=== PATIENT | male | born 1990 | race Caucasian/White ===

== ENCOUNTER 2017-12-19 17:11 | Emergency (ER) | payer SELFPAY ==
[~2017-12-19] VITALS: Ht 180.3 cm; Wt 93.0 kg
[2017-12-19 17:11] VITALS: BP_SYST 130
--- NOTE | 2017-12-19 17:11 | NUR ---
Pt arrives via crutches and placed to ER hallway bed. Redness and swelling generalized to anterior LLE with area of dark discoloration to mid lugo, 2-3+ pitting edema. Pt states that while driving, he felt a sharp pain to mid lugo then noticed swelling to that area. Pt went to Urgent Care in [place] and was Rx Bactrim DS PO BID. Last dose this am at 0900. Pt states he was concerned because he noticed an "indentation" to lugo when he pushed with his finger, so he came to ER.
--- NOTE | 2017-12-19 17:20 | NUR ---
Dr. Whitney at bedside to assess pt.
[2017-12-19 17:27] LABS: BASOPHILS # (AUTO) 0.1 K/uL (0.0-0.2); BASOPHILS % (AUTO) 0.5 % (0.0-2.0); EOSINOPHILS # (AUTO) 0.5 K/uL (0.0-0.4); EOSINOPHILS % (AUTO) 3.8 % (0.0-4.0); HEMOGLOBIN 14.3 g/dL (14.0-18.0); LYMPHOCYTES # (AUTO) 1.8 K/uL (1.0-5.5); LYMPHOCYTES % (AUTO) 14.6 % (20.5-51.5); MEAN CORPUSCULAR HEMOGLOBIN 29 pg (27-31); MEAN CORPUSCULAR HGB CONC 33 % (32-36); MEAN CORPUSCULAR VOLUME 89 fL (79.0-98.0); MONOCYTES # (AUTO) 1.1 K/uL (0.0-1.0); MONOCYTES % (AUTO) 8.9 % (1.7-9.3); NEUTROPHILS # (AUTO) 8.8 K/uL (1.8-7.7); NEUTROPHILS % (AUTO) 72.2 % (40.0-70.0); PLATELET COUNT (AUTO) 251 K/uL (130-430); RED BLOOD CELL COUNT(AUTO) 4.95 MIL/uL (4.2-6.2); RED CELL DISTRIBUTION WIDTH 12.3 % (9.0-15.0); WHITE BLOOD COUNT (AUTO) 12.3 K/uL (4.8-10.8)
--- NOTE | 2017-12-19 17:44 | NUR ---
x-ray at bedside.
[2017-12-19 17:46] LABS: CALCIUM 10.2 mg/dL (8.4-11.0); CREATININE 0.93 mg/dL (0.55-1.30)
[2017-12-19 17:50] LABS: ALBUMIN 3.7 g/dL (3.4-4.8); TOTAL BILIRUBIN 0.3 mg/dL (0.0-1.0)
[2017-12-19 17:59] LABS: PROTHROMBIN TIME 9.7 SECS (9.5-12.5)
[2017-12-19] MEDS: CLINDAMYCIN HCL 150 MG CAPSULE PO ONE (18:14)
--- NOTE | 2017-12-19 18:29 | NUR ---
Pt laying on bed, no needs verbalized. Pt states that he doesn't need any medication for pain.
--- NOTE | 2017-12-19 18:53 | NUR ---
Pt to [facility] via [facility].
--- NOTE | 2017-12-19 19:08 | NUR ---
Pt report given to ENMANUEL Wadsworth.
[2017-12-19 19:20] VITALS: BP_SYST 130
--- NOTE | 2017-12-19 19:20 | NUR ---
Patient given written and verbal discharge instructions and verbalizes understanding. ER MD MIGUEL discussed with patient the results and treatment provided. Patient in stable condition. ID arm band removed. Rx of Clindamycin given. Patient educated on pain management and to follow up with PMD. Pain Scale 2/10. VSS. No signs of SOB or acute distress noted. Opportunity for questions provided and answered.
== END 2017-12-19 19:20 | disposition home or self-care (01) ==
LOC: SED 17:11
DX: L03.116 Cellulitis of left lower limb (principal); Z88.0 Allergy status to penicillin
CPT/HCPCS: 36415; 73590-TC; 80053; 85025; 85610-TC; 85730-TC; 93971; 99285